=== PATIENT | female | born 1960 | race Hispanic/Latino ===

== ENCOUNTER → 2018-11-03 | Outpatient (CLI) | payer MEDICARE ==
[~2018-11-03] MED LIST: ANAS1TAB7 PO; ASPI-555 PO; CELE-84 PO; ESOM40CA PO; HYDR200T4 PO; INSLAN SQ; INSU100V3 IJ; LEVO150T11 PO; METO25TA3 PO; MONT10TA24 PO; SERT100T PO; SIMV40TA59 PO; TRAM50TA4 PO
== END | disposition home or self-care (01) ==
LOC: SHCH 15:04
PROVIDERS: ATTEND Internal Medicine Cardiovascular Disease
DX: R06.00 Dyspnea, unspecified (principal)
CPT/HCPCS: 93306

== ENCOUNTER → 2018-11-04 | Outpatient (CLI) | payer MEDICARE ==
[~2018-11-04] MED LIST changes: +ALBUTEROL SULFATE 0.083% 2.5 MG/3 ML INH IH ONE
== END | disposition home or self-care (01) ==
LOC: RESP 12:46
PROVIDERS: ATTEND Internal Medicine Cardiovascular Disease
DX: J40 Bronchitis, not specified as acute or chronic (principal)
CPT/HCPCS: 94060; 94727; 94729

== ENCOUNTER → 2019-01-14 | Outpatient (CLI) | payer MEDICARE ==
[~2019-01-14] MED LIST changes: -ALBUTEROL SULFATE 0.083% 2.5 MG/3 ML INH IH ONE
== END | disposition home or self-care (01) ==
LOC: RAH 13:13
PROVIDERS: ATTEND Internal Medicine
DX: J84.10 Pulmonary fibrosis, unspecified (principal); G47.33 Obstructive sleep apnea (adult) (pediatric); I51.7 Cardiomegaly
CPT/HCPCS: 71250

== ENCOUNTER → 2019-01-21 | Outpatient (CLI) | payer MEDICARE ==
--- NOTE | 2019-01-21 22:35 | NUR ---
LIST OF CURRENT MEDICATIONS (BOTH PRESCRIPTION AND OVER THE COUNTER: LANSOPRAZOLE 30MG BID, [id number] MG, ATORVASTATIN 40 MG, HYDROXYCHLORIDE 200MG, SERTRALINE 50 MG, SINGULAR 10 MG ONCE EVENING, BREO ELLIPTA 100 MCG INHALATION, TEMAZEPAM 30 MG HS. Addendum: 01/21/19 at 2239 by JOHNNY SHERMAN Amended: Links added.
== END | disposition home or self-care (01) ==
LOC: SLP 10:11
PROVIDERS: ATTEND Internal Medicine
DX: G47.33 Obstructive sleep apnea (adult) (pediatric) (principal)
CPT/HCPCS: 95810

== ENCOUNTER 2019-02-26 20:29 | Emergency (ER) | payer MEDICARE ==
[2019-02-26] MEDS ORDERED: DEXAMETHASONE SOD PHOSPHATE 10MG/ML 1ML VIAL ONE (21:28)
[2019-02-26] MEDS ORDERED: HYDROCODONE/ACETAMINOPHEN 10/325 MG TAB ONE (21:28)
[2019-02-26] MEDS ORDERED: KETOROLAC TROMETHAMINE 30MG/ML ONE (21:28)
[2019-02-26 22:34] LABS: BASOPHILS % (AUTO) 0.7 % (0.0-5.0); EOSINOPHILS % (AUTO) 1.9 % (0.0-8.0); HEMATOCRIT 38.2 % (36-48); LYMPHOCYTES % (AUTO) 22.1 % (21.0-51.0); MEAN CORPUSCULAR HEMOGLOBIN 27.9 pg (27.0-33.0); MEAN CORPUSCULAR HGB CONC 33.4 g/dL (32.0-36.0); MEAN CORPUSCULAR VOLUME 83.3 fL (79-99); MONOCYTES % (AUTO) 5.9 % (3.0-13.0); NEUTROPHILS % (AUTO) 69.4 % (40.0-77.0); PLATELET COUNT (AUTO) 211 K/uL (130-400); RED BLOOD CELL COUNT(AUTO) 4.58 MIL/uL (4.00-5.50); WHITE BLOOD COUNT (AUTO) 10.5 K/uL (4.8-10.8)
[2019-02-26 22:40] LABS: CREATININE 0.7 mg/dL (0.5-1.5); POTASSIUM 3.7 mmol/L (3.5-5.1)
[2019-02-26 22:45] LABS: ALBUMIN 3.3 g/dL (3.5-5.0); BILIRUBIN,TOTAL 0.2 mg/dL (0.2-1.0); CRP QUANTITATIVE 18.3 mg/L (0.00-9.0); TOTAL PROTEIN, SERUM 6.5 g/dL (6.0-8.3)
[2019-02-26 23:34] LABS: ERYTHROCYTE SEDIMENTATION RATE 17 MM/HR (0-30)
[2019-02-27] MEDS ORDERED: LORAZEPAM 2 MG/ML 1 ML VIAL ONE (00:03)
== END 2019-02-27 00:38 | disposition home or self-care (01) ==
LOC: EDH 20:29
DX: L93.0 Discoid lupus erythematosus (principal); M25.562 Pain in left knee; E11.9 Type 2 diabetes mellitus without complications; E78.5 Hyperlipidemia, unspecified; Z90.710 Acquired absence of both cervix and uterus; Z85.3 Personal history of malignant neoplasm of breast; X58.XXXA Exposure to other specified factors, initial encounter; Y93.89 Activity, other specified; Y92.098 Other place in other non-institutional residence as the place of occurrence of the external cause; Y99.8 Other external cause status
CPT/HCPCS: 36415; 73562; 80053; 85025; 85651; 86140; 96372 ×2; 96374; 99284; J1100; J1885; J2060

== ENCOUNTER 2019-05-14 14:45 | Inpatient (IN) | payer MEDICARE ==
[~2019-05-14] VITALS: Ht 157.5 cm; Wt 101.2 kg
[2019-05-14 16:03] VITALS: BP 150/71
[2019-05-14 16:21] LABS: BASOPHILS % (AUTO) 0.5 % (0.0-5.0); HEMATOCRIT 38.7 % (36-48); LYMPHOCYTES % (AUTO) 26.1 % (21.0-51.0); MEAN CORPUSCULAR HEMOGLOBIN 27.7 pg (27.0-33.0); MEAN CORPUSCULAR HGB CONC 32.8 g/dL (32.0-36.0); MEAN CORPUSCULAR VOLUME 84.4 fL (79-99); MONOCYTES % (AUTO) 5.5 % (3.0-13.0); NEUTROPHILS % (AUTO) 65.9 % (40.0-77.0); NUCLEATED RED BLOOD CELLS 0.1 % (0.0-0.19); PLATELET COUNT (AUTO) 221 K/uL (130-400); RED BLOOD CELL COUNT(AUTO) 4.59 MIL/uL (4.00-5.50); RED CELL DISTRIBUTION WIDTH 14.8 % (11.0-15.5); WHITE BLOOD COUNT (AUTO) 7.5 K/uL (4.8-10.8)
[2019-05-14 16:23] LABS: BILIRUBIN,URINE Negative (NEGATIVE); COLOR,URINE Yellow (YELLOW); GLUCOSE, URINE (UA) Negative (NEGATIVE); KETONES,URINE Negative (NEGATIVE); LEUKOCYTE ESTERASE ,URINE Small (NEGATIVE); NITRATE,URINE Positive (NEGATIVE); OCCULT BLOOD,URINE Negative (NEGATIVE); PH,URINE 5.5 (5.0-8.0); PROTEIN,URINE Negative (NEGATIVE)
[2019-05-14 16:26] LABS: APPEARANCE,URINE SLIGHTLY CLOUDY (CLEAR)
[2019-05-14 16:30] LABS: CREATININE 0.8 mg/dL (0.5-1.5); POTASSIUM 3.8 mmol/L (3.5-5.1)
[2019-05-14 16:35] LABS: PARTIAL THROMBOPLASTIN TIME 27.8 SEC (26.3-35.5)
[2019-05-14 16:48] LABS: PROTHROMBIN TIME 10.5 SEC (9.6-11.6)
[2019-05-14 16:54] LABS: BACTERIA,URINE Moderate /HPF (None Seen); RBC,URINE 0-1 /HPF (0-1)
[2019-05-14 16:55] LABS: MUCUS,URINE Few LPF (None Seen); SQUAMOUS EPITHELIAL CELL,UR Rare /HPF (0-2)
[2019-05-14] MEDS ORDERED: LANS30TA10 PO (17:15)
[2019-05-14] MEDS ORDERED: FLUT1AER IH (17:15)
[2019-05-14] MEDS ORDERED: SERT50TA12 PO (17:15)
[2019-05-14] MEDS ORDERED: FLUT16H NASAL (17:15)
[2019-05-14] MEDS ORDERED: TEMA30CA PO (17:15)
[2019-05-14] MEDS ORDERED: VITAMIN D (17:15)
[2019-05-14] MEDS ORDERED: LEVO150T11 PO (17:15)
[2019-05-14] MEDS ORDERED: ATOR40TA69 PO (17:15)
[2019-05-17] VITALS (28 sets, daily range): BP systolic 107–178; BP diastolic 47–86
[2019-05-17] MEDS ORDERED: CEFAZOLIN 3GM /D5W 100ML 100 ML IV SCH (06:00)
[2019-05-17] MEDS ORDERED: GENTAMICIN SULFATE 240 MG in SODIUM CHLORIDE 0.9% 100 ML IV SCH (06:00)
[2019-05-17] MEDS ORDERED: SUCCINYLCHOLINE 200MG/10ML SYR ONE (07:14)
[2019-05-17] MEDS ORDERED: LIDOCAINE PF 2% 5ML ABBOJECT ONE ×2 (07:14→07:15)
[2019-05-17] MEDS ORDERED: PROPOFOL 10 MG/ML 20ML VIAL IV ONE (07:15)
[2019-05-17] MEDS ORDERED: MIDAZOLAM HCL 1 MG/ML 2ML VIAL ONE (07:15)
[2019-05-17] MEDS ORDERED: FENTANYL CITRATE PF 50 MCG/1 ML 2ML VIAL ONE ×2 (07:15→10:37)
[2019-05-17] MEDS ORDERED: ROCURONIUM 10MG/1ML SYR 10 MG/ML ML ONE (07:15)
[2019-05-17] MEDS ORDERED: ROPIVACAINE 0.5% 5MG/ML 30ML IJ ONE ×2 (07:22→12:39)
[2019-05-17] MEDS ORDERED: CEFAZOLIN SODIUM 1 GM VIAL ONE (07:36)
[2019-05-17] MEDS ORDERED: TRANEXAMIC ACID 1000MG/10ML IV ONE ×2 (07:36→12:53)
[2019-05-17] MEDS ORDERED: SODIUM CHLORIDE 0.9% 1000ML 1,000 ML IV ONE (07:46)
[2019-05-17] MEDS: CEFAZOLIN SODIUM 1 GM VIAL ONE ×2 (08:01→08:38)
[2019-05-17] MEDS ORDERED: CEFAZOLIN SODIUM 1 GM VIAL IRRIG ONE (09:01)
[2019-05-17] MEDS ORDERED: HYDRALAZINE HCL 20 MG/ML VIAL ONE (09:11)
[2019-05-17] MEDS ORDERED: GLYCOPYRROLATE 1 MG/5 ML SYRINGE ONE (10:11)
[2019-05-17] MEDS ORDERED: NEOSTIGMINE 5MG/5ML SYR IV ONE (10:12)
[2019-05-17] MEDS ORDERED: OXYCODONE HCL 5 MG TAB PO PRN (10:30)
[2019-05-17] MEDS ORDERED: CALCIUM CARBONATE 500 MG TABLET PO PRN (10:30)
[2019-05-17] MEDS ORDERED: DiphenhydrAMINE HCL 50 MG/ML VIAL IVP PRN (10:30)
[2019-05-17] MEDS ORDERED: TRAMADOL HCL 50 MG TABLET PO PRN (10:30)
[2019-05-17] MEDS ORDERED: POTASSIUM CHLORIDE 10% ELIXIR 20 MEQ/15 ML UDCUP PO PRN (10:30)
[2019-05-17] MEDS ORDERED: ONDANSETRON HCL 4 MG/2 ML VIAL IVP PRN (10:30)
[2019-05-17] MEDS: ACETAMINOPHEN EXTRA STRENGTH 500 MG TABLET PO SCH ×2 (10:30→18:06)
[2019-05-17] MEDS ORDERED: POTASSIUM CHLORIDE 20MEQ/100ML 100 ML IV PRN (10:30)
[2019-05-17] MEDS ORDERED: FERROUS FUMARATE 324 MG TABLET PO PRN (10:30)
[2019-05-17] MEDS ORDERED: LIDOCAINE HCL-MPF 1% 2ML VIAL IVP PRN (10:30)
[2019-05-17] MEDS ORDERED: DEXAMETHASONE SOD PHOSPHATE 4 MG/ML 1ML VIAL ONE (10:34)
[2019-05-17] MEDS ORDERED: ONDANSETRON HCL 4 MG/2 ML VIAL ONE (10:34)
[2019-05-17] MEDS ORDERED: METOCLOPRAMIDE 10 MG/2 ML VIAL ONE (10:57)
[2019-05-17] MEDS ORDERED: MEPERIDINE-PF 25 MG/ML SYG ONE ×2 (11:06→11:15)
[2019-05-17] MEDS ORDERED: LABETALOL HCL 5 MG/ML 20ML VIAL IV ONE (11:15)
[2019-05-17] MEDS ORDERED: KETOROLAC TROMETHAMINE 30MG/ML ONE (11:56)
[2019-05-17] MEDS ORDERED: MEPERIDINE-PF 50 MG/ML SYG ONE (12:07)
[2019-05-17] MEDS: SODIUM CHLORIDE 0.9% 1000ML 1,000 ML IV SCH ×2 (13:10→20:13)
[2019-05-17] MEDS: CEFAZOLIN SODIUM 1 GM VIAL IVP SCH (16:18)
[2019-05-17] MEDS: OXYCODONE HCL 5 MG TAB PO PRN (16:18)
[2019-05-17] MEDS: ALBUTEROL SULFATE 0.083% 2.5 MG/3 ML INH IH SCH ×2 (19:01→23:10)
[2019-05-17] MEDS: BUDESONIDE 0.5 MG/2 ML INH IH SCH (19:12)
[2019-05-17] MEDS: ASPIRIN 325 MG TABLET PO SCH (20:12)
[2019-05-17] MEDS: PANTOPRAZOLE SODIUM 40 MG TABLET.DR PO SCH (20:12)
[2019-05-17] MEDS: PREGABALIN 25 MG CAP PO SCH (20:13)
[2019-05-17] MEDS: SERTRALINE HCL 50 MG TABLET PO SCH (20:13)
[2019-05-17] MEDS: TEMAZEPAM 30 MG CAP PO SCH (20:13)
[2019-05-17] MEDS: FAMOTIDINE 20MG TAB 20 MG TAB PO SCH (20:15)
[2019-05-17] MEDS: KETOROLAC TROMETHAMINE 15MG/ML IV PRN (20:16)
[2019-05-18] MEDS: CEFAZOLIN SODIUM 1 GM VIAL IVP SCH (00:15)
[2019-05-18] MEDS: ACETAMINOPHEN EXTRA STRENGTH 500 MG TABLET PO SCH ×3 (02:48→18:25)
[2019-05-18 03:00] VITALS: BP 116/70
[2019-05-18] MEDS: OXYCODONE HCL 5 MG TAB PO PRN ×4 (04:30→21:06)
[2019-05-18 04:36] LABS: HEMATOCRIT 30.9 % (36-48); MEAN CORPUSCULAR HEMOGLOBIN 28.2 pg (27.0-33.0); MEAN CORPUSCULAR HGB CONC 33.6 g/dL (32.0-36.0); MEAN CORPUSCULAR VOLUME 83.9 fL (79-99); PLATELET COUNT (AUTO) 199 K/uL (130-400); RED BLOOD CELL COUNT(AUTO) 3.68 MIL/uL (4.00-5.50); RED CELL DISTRIBUTION WIDTH 14.5 % (11.0-15.5); WHITE BLOOD COUNT (AUTO) 9.8 K/uL (4.8-10.8)
[2019-05-18 04:53] LABS: CREATININE 0.6 mg/dL (0.5-1.5); POTASSIUM 3.4 mmol/L (3.5-5.1)
[2019-05-18] MEDS: BUDESONIDE 0.5 MG/2 ML INH IH SCH ×2 (05:20→19:17)
[2019-05-18] MEDS: ALBUTEROL SULFATE 0.083% 2.5 MG/3 ML INH IH SCH ×3 (05:20→19:17)
[2019-05-18] MEDS: LEVOTHYROXINE 150 MCG TABLET PO SCH (06:16)
[2019-05-18] MEDS: SODIUM CHLORIDE 0.9% 1000ML 1,000 ML IV SCH (06:16)
[2019-05-18] MEDS: POTASSIUM CHLORIDE 20 MEQ ERTAB PO PRN ×2 (06:16→18:24)
[2019-05-18] MEDS: KETOROLAC TROMETHAMINE 15MG/ML IV PRN ×2 (06:20→16:06)
[2019-05-18 07:00] VITALS: BP 120/53
[2019-05-18] MEDS: ATORVASTATIN CALCIUM 40 MG TABLET PO SCH (08:29)
[2019-05-18] MEDS: PREGABALIN 25 MG CAP PO SCH ×2 (08:30→21:05)
[2019-05-18] MEDS: PANTOPRAZOLE SODIUM 40 MG TABLET.DR PO SCH ×2 (08:30→21:05)
[2019-05-18] MEDS: ASPIRIN 325 MG TABLET PO SCH ×2 (08:30→21:05)
[2019-05-18] MEDS: POLYETHYLENE GLYCOL 3350 17 GM POWD.PACK PO SCH (08:31)
[2019-05-18] MEDS: FLUTICASONE PROPIONATE 50MCG/SPRAY 16 GM BOTTLE EN SCH (08:31)
[2019-05-18] MEDS: FAMOTIDINE 20MG TAB 20 MG TAB PO SCH ×2 (08:32→21:05)
[2019-05-18 12:56] VITALS: BP 117/59
[2019-05-18 16:18] VITALS: BP 132/63
[2019-05-18 19:00] VITALS: BP 125/61
[2019-05-18] MEDS ORDERED: IPRATROPIUM/ALBUTEROL SULFATE 3 ML SOLUTION IH ONE (19:30)
[2019-05-18] MEDS: TEMAZEPAM 30 MG CAP PO SCH (21:05)
[2019-05-18] MEDS: SERTRALINE HCL 50 MG TABLET PO SCH (21:05)
[2019-05-18 23:00] VITALS: BP 120/61
[2019-05-19] MEDS: ALBUTEROL SULFATE 0.083% 2.5 MG/3 ML INH IH SCH ×3 (00:08→11:05)
[2019-05-19 03:00] VITALS: BP 140/71
[2019-05-19] MEDS: OXYCODONE HCL 5 MG TAB PO PRN ×2 (03:53→15:44)
[2019-05-19] MEDS: ACETAMINOPHEN EXTRA STRENGTH 500 MG TABLET PO SCH ×2 (03:54→11:45)
[2019-05-19] MEDS: BUDESONIDE 0.5 MG/2 ML INH IH SCH (06:08)
[2019-05-19] MEDS: LEVOTHYROXINE 150 MCG TABLET PO SCH (06:08)
[2019-05-19] MEDS: KETOROLAC TROMETHAMINE 15MG/ML IV PRN ×2 (08:01→18:10)
[2019-05-19] MEDS: PANTOPRAZOLE SODIUM 40 MG TABLET.DR PO SCH (08:01)
[2019-05-19] MEDS: ASPIRIN 325 MG TABLET PO SCH (08:01)
[2019-05-19] MEDS: POLYETHYLENE GLYCOL 3350 17 GM POWD.PACK PO SCH (08:01)
[2019-05-19] MEDS: PREGABALIN 25 MG CAP PO SCH (08:02)
[2019-05-19] MEDS: ATORVASTATIN CALCIUM 40 MG TABLET PO SCH (08:02)
[2019-05-19] MEDS: FLUTICASONE PROPIONATE 50MCG/SPRAY 16 GM BOTTLE EN SCH (08:02)
[2019-05-19] MEDS: FAMOTIDINE 20MG TAB 20 MG TAB PO SCH (08:02)
[2019-05-19 08:23] VITALS: BP 134/68
[2019-05-19] MEDS ORDERED: NITROFURANTOIN MONOHYD/M-CRYST 100 MG CAPSULE PO SCH (09:00)
[2019-05-19] MEDS ORDERED: BISACODYL 10 MG SUPP.RECT RC ONE (15:45)
[2019-05-19 16:35] VITALS: BP 135/54
[2019-05-19] MEDS ORDERED: HYDR-4457 PO (17:08)
[2019-05-19] MEDS ORDERED: ASPI-1012 PO (17:08)
[2019-05-19] MEDS ORDERED: NITR100C4 PO (17:08)
[2019-05-20] MEDS ORDERED: BISACODYL 10 MG SUPP.RECT RC PRN (10:30)
== END 2019-05-19 19:15 | disposition home health service (06) | DRG 470 ==
LOC: DAHIP 05-17 06:56 → 4AH 05-17 11:48
PROVIDERS: ADMIT Orthopaedic Surgery; ATTEND Orthopaedic Surgery
PROC: 0SUW09Z Supplement Left Knee Joint, Tibial Surface with Liner, Open Approach (ICD-10-PCS; 2019-05-17)
PROC: 0SRD0J9 Replacement of Left Knee Joint with Synthetic Substitute, Cemented, Open Approach (ICD-10-PCS; principal; 2019-05-17 08:21)
DX: M17.12 Unilateral primary osteoarthritis, left knee (principal); N39.0 Urinary tract infection, site not specified; E03.9 Hypothyroidism, unspecified; E11.9 Type 2 diabetes mellitus without complications; E78.00 Pure hypercholesterolemia, unspecified; I10 Essential (primary) hypertension; J44.9 Chronic obstructive pulmonary disease, unspecified; K21.9 Gastro-esophageal reflux disease without esophagitis; G89.29 Other chronic pain; Z96.651 Presence of right artificial knee joint; Z90.710 Acquired absence of both cervix and uterus; Z88.1 Allergy status to other antibiotic agents; Z85.3 Personal history of malignant neoplasm of breast
CPT/HCPCS: 36415; 80048; 81001; 82948; 85025; 85027; 85610; 85730; 87077; 87088; 87186; 87641; 88305; 88311; 94640; 94664; G0378; J0330; J0360; J0690; J1100; J1580; J1885; J2001; J2175; J2250; J2405; J2704; J2710; J2765; J2795; J3010; J3490; J7030

== ENCOUNTER → 2020-01-05 | Outpatient (CLI) | payer MEDICARE ==
[~2020-01-05] MED LIST changes: +ALBUTEROL SULFATE 0.083% 2.5 MG/3 ML INH IH ONE; -ANAS1TAB7 PO; +ASPI-1012 PO; -ASPI-555 PO; +ATOR40TA69 PO; -CELE-84 PO; -ESOM40CA PO; +FLUT16H NASAL; +FLUT1AER IH; +HYDR-4457 PO; -HYDR200T4 PO; -INSLAN SQ; -INSU100V3 IJ; +LANS30TA10 PO; -METO25TA3 PO; -MONT10TA24 PO; +NITR100C4 PO; -SERT100T PO; +SERT50TA12 PO; -SIMV40TA59 PO; +TEMA30CA PO; -TRAM50TA4 PO; +VITAMIN D
== END | disposition home or self-care (01) ==
LOC: RESP 12:55
PROVIDERS: ATTEND Internal Medicine
DX: L93.0 Discoid lupus erythematosus (principal); J44.9 Chronic obstructive pulmonary disease, unspecified
CPT/HCPCS: 94060; 94727; 94729

== ENCOUNTER → 2022-05-10 | Outpatient (CLI) | payer OTHER, MEDICARE ==
[~2022-05-10] MED LIST changes: -ALBUTEROL SULFATE 0.083% 2.5 MG/3 ML INH IH ONE; +SERT-439 PO; -SERT50TA12 PO
== END | disposition home or self-care (01) ==
LOC: RAH 04-26 15:06
PROVIDERS: ATTEND Internal Medicine
DX: J44.9 Chronic obstructive pulmonary disease, unspecified (principal); R06.00 Dyspnea, unspecified
CPT/HCPCS: 71250

== ENCOUNTER 2025-06-10 18:49 | Observation (INO) | payer MEDICARE ==
[~2025-06-10] VITALS: Ht 157.5 cm; Wt 102.4 kg
[2025-06-10 19:35] LABS: IMMATURE GRANULOCYTE ABSOLUTE 0.02 K/uL (0-1); NUCLEATED RED BLOOD CELLS 0.0 % (0.0-0.19); PLATELET COUNT (AUTO) 189 K/uL (130-400); RED BLOOD CELL COUNT(AUTO) 5.03 MIL/uL (4.00-5.50); RED CELL DISTRIBUTION WIDTH 14.6 % (11.0-15.5); WHITE BLOOD COUNT (AUTO) 4.4 K/uL (4.8-10.8)
[2025-06-10 19:41] LABS: APPEARANCE,URINE CLEAR (CLEAR); GLUCOSE, URINE (UA) NEGATIVE (NEGATIVE); LEUKOCYTE ESTERASE ,URINE 25 Leu/uL (NEGATIVE); NITRATE,URINE NEGATIVE (NEGATIVE); OCCULT BLOOD,URINE NEGATIVE (NEGATIVE)
[2025-06-10 19:47] LABS: CREATININE 0.7 mg/dL (0.5-1.0); GLOMERULAR FILTR. RATE CALC 95.0 mL/min (>90); GLUCOSE,RANDOM 111.0 mg/dL (70-105); SODIUM SERUM 146.0 mmol/L (136-145); UREA NITROGEN, BLOOD 10.0 mg/dL (7-18)
[2025-06-10] MEDS: FAMOTIDINE 20MG VIAL IV SCH (19:49)
[2025-06-10 19:51] LABS: ASPARTATE AMINOTRANSFERASE 33.0 U/L (10-37); TOTAL PROTEIN, SERUM 6.9 g/dL (6.0-8.3)
[2025-06-10 20:05] LABS: ADD UA MICROSCOPIC YES
[2025-06-10 20:13] LABS: SQUAMOUS EPITHELIAL CELL,UR RARE /HPF (0-2)
[2025-06-10 20:17] LABS: RAPID GROUP A STREP negative (NEGATIVE)
[2025-06-10 20:28] LABS: INFLUENZA TYPE A Negative For Type A (NEGATIVE); INFLUENZA TYPE B Negative For Type B (NEGATIVE)
[2025-06-10 20:53] VITALS: TEMP 100.7
[2025-06-10] MEDS: 0.9%NACL 1000ML 1,000 ML IV ONE (20:55)
[2025-06-10 21:17] LABS: SARS-CoV-2, RNA, NAAT POSITIVE SARS CoV-2 (NEGATIVE)
[2025-06-11] VITALS (11 sets, daily range): BP systolic 122–141; BP diastolic 64–75; PULSE 63–74; RESP 16–20; TEMP 97.6–98; O2SAT 97–98
[2025-06-11] MEDS ORDERED: ATOR40TA71 PO (00:12)
[2025-06-11] MEDS ORDERED: DEXL60CA3 PO (00:12)
[2025-06-11] MEDS ORDERED: MONT-39 PO (00:12)
[2025-06-11] MEDS ORDERED: INSU3INS3 SQ (00:12)
[2025-06-11] MEDS ORDERED: CHOL500051 PO (00:12)
[2025-06-11] MEDS ORDERED: TEMA30CA PO (00:12)
[2025-06-11] MEDS ORDERED: MELO-108 PO (00:12)
[2025-06-11] MEDS ORDERED: METH8TAB6 PO (00:12)
[2025-06-11] MEDS ORDERED: VITA1CAP85 PO (00:12)
[2025-06-11] MEDS ORDERED: MIRT-142 PO (00:12)
[2025-06-11] MEDS ORDERED: LOSA25TA41 PO (00:12)
--- NOTE | 2025-06-11 00:28 | ERN ---
General Chief Complaint: Weakness Stated Complaint: WEAKNESS,MULTIPLE Time Seen by MD: 18:55 Time Seen by Midlevel: 18:55 Source: patient History of Present Illness Initial Comments Patient is a 64-year-old female presenting to the emergency department for evaluation of generalized body weakness that has been ongoing for the last week and progressively worsening. Associated symptoms include nausea, vomiting, and abdominal pain. Her main concern today is the new onset of dyspnea on exertion that has been ongoing for the last couple of days. Today she reports developing a fever. Denies any other symptoms Allergies: Coded Allergies: Sulfa (Sulfonamide Antibiotics) (Verified Allergy, Unknown, 05/28/16) Home Meds Active Scripts Hydrocodone/Acetaminophen ([place] 5-325 Tablet) 1 Each Tablet, 1-2 EACH PO Q6HPRN PRN for PAIN, #60 TAB Prov:MATEUS DEL RIO MD 05/19/19 Nitrofurantoin Monohyd/M-Cryst (Macrobid 100 mg Capsule) 100 Mg Capsule, 100 MG PO BID, #20 CAP Prov:MATEUS DEL RIO MD 05/19/19 Aspirin (ASPIRIN) 325 Mg Tablet, 325 MG PO BID, #40 TAB Prov:MATEUS DEL RIO MD 05/19/19 Reported Medications Meloxicam (Meloxicam) 15 Mg Tablet, 1 TAB PO DAILY for 30 Days, #30 TAB 0 Refills 06/11/25 Mirtazapine (Mirtazapine Odt) 15 Mg Tab.rapdis, 15 MG PO DAILY, TAB 06/11/25 Cholecalciferol (Vitamin D3) (Vitamin D3) 125 Mcg (5000 Unit) Capsule, 1 CAP PO DAILY for 30 Days, #30 CAP 0 Refills 06/11/25 Temazepam (Temazepam) 30 Mg Capsule, 1 CAP PO HSPRN PRN for sleep for 30 Days, #30 CAP 0 Refills 06/11/25 Vitamin B Complex (Vitamin B Complex) 1 Each Capsule, 1 CAP PO DAILY for 30 Days, #60 CAP 0 Refills 06/11/25 Insulin Glargine,Hum.rec.anlog (Lantus Solostar) 100 Unit/Ml (3 Ml) Insuln.pen, 20 UNIT SQ HS for 30 Days, ML 0 Refills 06/11/25 Methylprednisolone (Methylprednisolone) 8 Mg Tablet, 1 TAB PO AD for 5 Days, #5 TAB 0 Refills 06/11/25 Dexlansoprazole (Dexilant) 60 Mg Cap., 1 CAP PO DAILY for 30 Days, #30 CAP 0 Refills 06/11/25 Montelukast Sodium (Montelukast Sodium) 10 Mg Tablet, 1 TAB PO DAILY for 30 Days, #30 TAB 0 Refills 06/11/25 Atorvastatin Calcium (Atorvastatin Calcium) 40 Mg Tablet, 1 TAB PO QMOWEFR for 30 Days, #30 TAB 0 Refills 06/11/25 Losartan Potassium (Losartan Potassium) 25 Mg Tablet, 1 TAB PO DAILY for 30 Days, #30 TAB 0 Refills 06/11/25 Fluticasone Propionate (Flonase Nasal [place]) 50 Mcg/[place], 50 MCG NASAL DAILY, SPRAY 05/14/19 Fluticasone/Vilanterol (Breo Ellipta 100-25 Mcg INH) 1 Each Aer.pow.ba, 1 EACH IH DAILY 05/14/19 Sertraline HCl (Sertraline HCl) 50 Mg Tablet, 50 MG PO HS, TAB 05/14/19 Atorvastatin Calcium (LIPITOR) 40 Mg Tablet, 40 MG PO DAILY, TAB 05/14/19 Temazepam (Temazepam) 30 Mg Capsule, 30 MG PO HS, CAP 05/14/19 Levothyroxine Sodium (Levothyroxine Sodium) 150 Mcg Tablet, 150 MCG PO DAILY, TAB 05/14/19 [Vitamin D] No Conflict Check, [id number] 05/14/19 Lansoprazole (Lansoprazole) 30 Mg Tab., 30 MG PO BID 05/14/19 Past Medical History Past Medical History: Diabetes-Type II, Hypertension, Hypothyroid Medical History Other: LUPUS, CHEMOTHERAPY Past Surgical History: Other Surgical History Other: BARIATRIC SURGERY ROS Dictation CONSTITUTIONAL: Negative except for HPI HEAD/FACE: Negative except for HPI EENT: Negative except for HPI RESPIRATORY: Negative except for HPI GASTROINTESTINAL/ABDOMINAL: Negative except for HPI GENITOURINARY: Negative except for HPI MUSCULOSKELETAL: Negative except for HPI INTEGUMENTARY: Negative except for HPI NEUROLOGICAL/PSYCH: Negative except for HPI HEMATOLOGIC/LYMPHATIC: Negative except for HPI All Systems Negative, Except as noted above. 13 point review of systems assessed and all negative except for above. Physical Exam Physical Exam Dictation Vital Signs reviewed General Appearance: Alert, oriented x 3, no acute distress, well developed, nourished. Head and Face: non-traumatic. Eyes: PERRL, pink conjunctivas, eyelid no trauma, anterior chamber with arcus senilis. Ears: Pinnas intact and no signs of trauma or erythema ear canals clear and no discharge TM no erythema Nose: No discharge, no bleeding. Oropharynx: Mouth normal, tongue pink, pharynx clear,no erythema, tonsils no exudates, no abscesses noted, mucous membrane moist Neck: Supple, non-tender, no thyromegaly, no masses, no JVD, no bruits Breast:Deferred Chest:No tenderness, no crepitus, no paradoxical movement, no retractions Lungs:Clear, well-ventilated, symmetric, no rales, no wheezing, no rhonchi, no stridor, good breath sounds bilaterally Heart: Regular rate, regular rhythm, no murmur, no gallops Vascular: no peripheral edema, Abdomen: Soft, positive bowel sounds, nondistended, no guarding, nontender, no rebound, no masses no hepatomegaly, no splenomegaly, no Pavon's sign, no hernias. Rectal: Deferred Genital: Deferred Neurological: Normal speech, motor function intact, sensory function intact Musculoskeletal: Neck nontender, full range of motion, back nontender, full range of motion, Extremities: nontender, full range of motion Skin: Color pink, dry, no turgor, no rash, no lacerations, no abrasions, no contusions. Lymphatic: Deferred Results Laboratory and Microbiology Lab and Micro Result Laboratory Tests Test 06/10/25 19:20 06/10/25 19:23 06/10/25 19:51 06/10/25 20:40 Urine Color LIGHT-YELLOW (YELLOW) Urine Appearance CLEAR (CLEAR) Urine pH 6.5 (5.0-8.0) Urine Specific [place] 1.009 (1.001-1.031) Urine Protein NEGATIVE mg/dL (NEGATIVE) Urine Glucose (UA) NEGATIVE mg/dL (NEGATIVE) Urine Ketones NEGATIVE mg/dL (NEGATIVE) Urine Occult Blood NEGATIVE (NEGATIVE) Urine Nitrate NEGATIVE (NEGATIVE) Urine Bilirubin NEGATIVE mg/dL (NEGATIVE) Urine Urobilinogen 0.2 mg/dL (0.2-1.0) Urine Leukocyte Esterase 25 Tucker/uL (NEGATIVE) H Urine RBC 0-1 /HPF (0-1) Urine WBC 6-10 /HPF (0-1) H Urine Squamous Epithelial Cells RARE /HPF (0-2) Urine Bacteria RARE /HPF (None Seen) White Blood Count 4.4 K/uL (4.8-10.8) L Red Blood Count 5.03 MIL/uL (4.00-5.50) Hemoglobin 14.1 g/dL (12.0-16.0) Hematocrit 42.7 % (36-48) Mean Corpuscular Volume 84.9 fL (79-99) Mean Corpuscular Hemoglobin 28.0 pg (27.0-33.0) Mean Corpuscular Hemoglobin Concent 33.0 g/dL (32.0-36.0) Red Cell Distribution Width 14.6 % (11.0-15.5) Platelet Count 189 K/uL (130-400) Mean Platelet Volume 11.0 fL (7.5-10.5) H Immature Granulocyte % (Auto) 0.5 % (0-1) Neutrophils (%) (Auto) 64.8 % (40.0-77.0) Lymphocytes (%) (Auto) 27.6 % (21.0-51.0) Monocytes (%) (Auto) 6.0 % (3.0-13.0) Eosinophils (%) (Auto) 0.9 % (0.0-8.0) Basophils (%) (Auto) 0.2 % (0.0-5.0) Neutrophils # (Auto) 2.8 K/uL (1.8-7.7) Lymphocytes # (Auto) 1.2 K/uL (1.0-4.8) Monocytes # (Auto) 0.3 K/uL (0.1-1.0) Eosinophils # (Auto) 0.04 K/uL (0.00-0.70) Basophils # (Auto) 0.01 K/uL (0.00-0.20) Absolute Immature Granulocyte (auto 0.02 K/uL (0-1) Nucleated Red Blood Cells 0.0 % (0.0-0.19) Sodium Level 146 mmol/L (136-145) H Potassium Level 3.6 mmol/L (3.5-5.1) Chloride Level 109 mmol/L (101-111) Carbon Dioxide Level 25 mmol/L (21-32) Blood Urea Nitrogen 10 mg/dL (7-18) Creatinine 0.7 mg/dL (0.5-1.0) Glomerular Filtration Rate Calc 95 mL/min (>90) Random Glucose 111 mg/dL (70-105) H Total Calcium 8.9 mg/dL (8.5-10.1) Total Bilirubin 0.5 mg/dL (0.2-1.0) Direct Bilirubin 0.1 mg/dL (0.0-0.3) Aspartate Amino Transf (AST/SGOT) 33 U/L (10-37) Alanine Aminotransferase (ALT/SGPT) 32 U/L (12-78) Alkaline Phosphatase 149 U/L (50-136) H Troponin I High Sensitivity 10 ng/L (4-50) B-Type Natriuretic Peptide 25 pg/mL (0-100) Total Protein 6.9 g/dL (6.0-8.3) Albumin 3.6 g/dL (3.5-5.0) Lipase 45 U/L (16-77) Influenza Type A Antigen Negative For Type A Influenza Type B Antigen Negative For Type B SARS-CoV-2, RNA, NAAT POSITIVE SARS CoV-2 Group A Streptococcus Rapid negative (NEGATIVE) Lactic Acid Level 1.9 mmol/L (0.8-2.5) MDM MDM: Differential diagnosis: Pneumonia, pulmonary edema, pleural effusion Rationale: Tests considered and ordered secondary to shared decision making include: Previous outside records reviewed: Old ER visits. Risk of complication and/or morbidity or mortality of patient management: None Medications-Per medication reconciliation Need for hospitalization: Patient does meet criteria for hospitalization. Need for emergency major/minor surgery: No There are no social concerns with this patient. Prescription drug management Prescriptions will include symptomatic care Patient's prior external medical records from other ER visits were reviewed by me as indicated. Prior testing and results from previous visits were reviewed. Prior tests were taken into account with medical decision making and resource utilization, independent historian/historians were used to obtain complete medical history. I independently interpreted the test that were performed, results were reviewed by me and considered findings on radiology if ordered. Medical management and examination interpretation discussions were had by me with other qualified healthcare professionals as indicated for the patient's care. ED Course Orders Procedure Category Date Status Time 12 Lead Ekg Tracing- EKG 06/10/25 Logged Technical 19:10 Cbc With Differential LAB 06/10/25 Complete 19:10 Basic Metabolic Panel LAB 06/10/25 Complete 19:10 Troponin I High LAB 06/10/25 Complete Sensitivity 19:10 Urinalysis Profile LAB 06/10/25 Complete 19:10 Hepatic Function Panel LAB 06/10/25 Complete 19:22 Lipase LAB 06/10/25 Complete 19:22 Ketorolac PHA 06/10/25 Complete Tromethamine 15mg/Ml 19:30 Ondansetron 4mg Inj PHA 06/10/25 Complete (Zofran 4mg Inj) 19:30 Famotidine 20mg Vial PHA 06/10/25 Complete (Pepcid 20mg Vial) 19:30 B-Type Natriuretic LAB 06/10/25 Complete Peptide 19:25 Chest 1vw RAD 06/10/25 Taken 19:25 Covid Rna Naat LAB 06/10/25 Complete 19:40 Influenza Type A & B, LAB 06/10/25 Complete Rapid 19:40 Rapid (Group A Strep) LAB 06/10/25 Complete 19:40 Acetaminophen 500mg PHA 06/10/25 Complete Tab (Tylenol 500mg T 20:00 Acetaminophen 500mg PHA 06/10/25 Complete Tab (Tylenol 500mg T 19:44 0.9%Nacl 1000ml (Ns PHA 06/10/25 Complete 1000ml) 20:30 Blood Cult JAYDE 06/10/25 In Process 20:24 Lactic Acid LAB 06/10/25 Complete 20:24 Culture Urine JAYDE 06/10/25 In Process 20:36 Current Medications Medications (Trade) Dose Ordered Sig/Josué Route PRN Reason Start Time Stop Time Status Last Admin Dose Admin Acetaminophen (TYLenol 500MG TAB) 500 mg STK-MED ONCE .ROUTE 06/10/25 19:44 06/10/25 19:44 DC Acetaminophen (TYLenol 500MG TAB) 1,000 mg ONCE PO 06/10/25 20:00 06/10/25 23:59 DC 06/10/25 19:51 Famotidine (Pepcid 20mg Vial) 20 mg ONCE IV 06/10/25 19:30 06/10/25 23:30 DC 06/10/25 19:49 Ketorolac Tromethamine (toRADol) 15 mg ONCE IV 06/10/25 19:30 06/10/25 23:30 DC 06/10/25 19:50 Ondansetron HCl (zoFRAN 4MG INJ) 4 mg ONCE IVP 06/10/25 19:30 06/10/25 23:30 DC 06/10/25 19:50 Sodium Chloride 1,000 ml @ 0 mls/hr ONCE ONCE IV 06/10/25 20:30 06/10/25 20:31 DC 06/10/25 20:55 Vital Signs Date Time Temp Pulse Resp B/P (MAP) Pulse Ox O2 Delivery O2 Flow Rate FiO2 06/10/25 22:38 99.1 64 18 133/70 98 Room Air* 0 21 06/10/25 20:51 100.8 77 18 149/45 99 Room Air* 0 06/10/25 19:51 101.7 06/10/25 19:41 101.7 82 24 168/77 97 Room Air* 0 06/10/25 18:52 100.6 89 16 191/89 96 Room Air 0 DX & DISP Disposition: Inpatient Departure Impression: Primary Impression: Dyspnea on exertion Additional Impression: COVID-19 Condition: Stable Referrals: RUDDY PATTON MD (PCP) I have reviewed the case, and I agree with, Diagnosis and Plan I performed the substantive portion of the visit. I have reviewed and personally made and approve the management plan that is documented in the note by myself or the KIM. I acknowledge for responsibility for the patient's management plan. KARI JUAREZ Jun 11, 2025 00:28
--- NOTE | 2025-06-11 01:31 | HP ---
[facility] Date of Service: Jun 11, 2025 Time of Service: 01:31 PCP, Michael Patterson HISTORY OF PRESENT ILLNESS: This is a 64-year-old female with past medical history of Osteoarthritis Breast cancer, diabetes, hypothyroidism, hypercholesterolemia, hypertension, GERD, hemorrhoids, lupus morbid obesity, Chronic obstructive pulmonary disease who presents to the ED for complaints of generalized body weakness , fatigue and cough started one week ago. Patient reports symptoms have progressively got wo rse and she started having fever ,nausea and shortness of breath x 2 days and now patient having palpitation as well so decided to drive self to ER for evaluation .Patient denies recent travel,no sick contacts and patient reports she is fully vaccinated with Covid. Vital signs in the ER temperature 101.7 heart rate 82, respiration 24, blood pressure 168/77, saturation 97% on room air. Seen and examined patient in the ER awake,alert and coherent,appears comfortable.Patient denies headache, dizziness, chest pain, vomiting, abdominal pain, sore throat and diarrhea. Latest vital signs temperature 97.9, heart rate 57, blood pressure 134/76, saturation 99% on room air. Labs: WBC 4.4 the rest of CBC result is unremarkable. Sodium 146, potassium 3.6, lactic acid 1.9 alkaline phosphatase 149 BNP 25 troponin 10. Urinalysis positive with esterase, urine RBC 0-1, urine WBC 6-10. Serology test for influenza type a and B negative SARs COVID positive group a strep negative. Chest x-ray result is still pending at this time. While in the ER patient received Toradol 15 mg IV, Zofran 4 mg IV, famotidine 20 mg IV, Tylenol 1000 mg p.o. and 1 L NS bolus. We will admit patient for further medical management. REVIEW OF SYSTEMS CONSTITUTIONAL: Positive fever Denies chills, or night sweats. No unintentional weight loss reported. NEUROLOGICAL: Generalized body weakness and fatigue Denies headache, amaurosis fugax, sensory deficit, vertigo/spinning sensation, gait abnormalities, or tremors. ENT: No hearing loss, otalgia, otorrhea, rhinitis, rhinorrhea, hoarseness, or sore throat. CARDIOVASCULAR: Denies any exertional angina, dyspnea on exertion, orthopnea, paroxysmal nocturnal dyspnea, palpitations, life-threatening arrhythmias, claudication. PULMONARY: Positive shortness of breaths and dry cough Denies phlegm/sputum, hemoptysis, pleuritic chest pain. SLEEP: Denies morning headaches, daytime somnolence or napping. Denies difficulty falling asleep, staying asleep, waking from sleep. Denies knowledge of snoring. GASTROINTESTINAL: Positive nausea Denies any type of dysphagia to either liquids or solids. Denies vomiting, pyrosis, early satiety, abdominal pain, diarrhea, constipation, or changes in stool consistency or caliber. Denies coffee-ground emesis, hematemesis, hematochezia, or melanotic stools. GENITOURINARY: Denies frequency, urgency, nocturia, hematuria or incontinence (Storage/Irritative symptoms.) Low urinary stream, straining to void, urinary intermittency or hesitancy, splitting of the voiding stream, terminal dribbling. ENDOCRINOLOGIC: Denies polyuria, polydipsia, polyphagia or heat/cold intolerances. HEMATOLOGIC: Denies thrombophilia/previous clots, or coagulopathy/bleeding disorders. ONCOLOGIC: Denies personal history of malignancy. DERMATOLOGIC: Denies rashes or pruritus. PSYCHIATRIC: Denies any suicidal or homicidal ideation. Denies hallucinations. PAST MEDICAL HISTORY: [Osteoarthritis Breast cancer, diabetes, hypothyroidism, hypercholesterolemia, hypertension, GERD, hemorrhoids, lupus morbid obesity, Chronic obstructive pulmonary disease ] PAST SURGICAL HISTORY: [ Right total knee arthroplasty, right knee arthroscopy, tonsillectomy, C- section, right breast cyst removal, hysterectomy and gastric sleeve surgery ] PAST SOCIAL HISTORY: [ Patient lives alone. Patient denies alcohol tobacco and recreational drug ] FAMILY HISTORY: [Stroke, hypertension, cardiovascular disease, asthma ] Coded Allergies: Sulfa (Sulfonamide Antibiotics) (Verified Allergy, Unknown, 05/28/16) PHYSICAL EXAM GENERAL APPEARANCE: The patient is awake, alert, and oriented, in no acute cardiopulmonary distress. NEUROLOGICAL: Cranial nerves II-XII grossly intact. Motor is 5/5 in bilateral upper and lower extremities proximal to distal. No sensory deficits. HEENT: Face is symmetric. Pupils are equal and reactive. Extraocular movements are intact. NECK: Supple. No JVD. No thyromegaly. No submental, submandibular, pre- /postauricular, occipital or supraclavicular lymphadenopathy. CHEST: Normal chest expansion. No Telemetry. LUNGS: Diminished breath sounds per auscultation CARDIOVASCULAR: Regular. S1 and S2 normal. No appreciable rubs, murmurs or ga llops. ABDOMEN: Soft, nontender, and nondistended. There is no rebound, voluntary guarding, or rigidity. : Deferred. No [place]. EXTREMITIES: Non-edematous and not cyanotic. No clubbing. Good capillary refill. SKIN: No skin breakdown. Vital Sign (Last 24 Hours) 06/10/25 22:38 Temp 99.1 Pulse 64 Resp 18 B/P (MAP) 133/70 Pulse Ox 98 O2 Delivery Room Air* O2 Flow Rate 0 FiO2 21 LABS: Laboratory: Test 06/10/25 20:40 06/10/25 19:51 06/10/25 19:23 06/10/25 19:20 Range/Units Lactic Acid Level 1.9 0.8-2.5 mmol/L Influenza Type A Antigen Negative For Type A NEGATIVE Influenza Type B Antigen Negative For Type B NEGATIVE SARS-CoV-2, RNA, NAAT POSITIVE SARS CoV-2 *A NEGATIVE Group A Streptococcus Rapid negative NEGATIVE White Blood Count 4.4 L 4.8-10.8 K/uL Red Blood Count 5.03 4.00-5.50 MIL/uL Hemoglobin 14.1 12.0-16.0 g/dL Hematocrit 42.7 36-48 % Mean Corpuscular Volume 84.9 79-99 fL Mean Corpuscular Hemoglobin 28.0 27.0-33.0 pg Mean Corpuscular Hemoglobin Concent 33.0 32.0-36.0 g/dL Red Cell Distribution Width 14.6 11.0-15.5 % Platelet Count 189 130-400 K/uL Mean Platelet Volume 11.0 H 7.5-10.5 fL Immature Granulocyte % (Auto) 0.5 0-1 % Neutrophils (%) (Auto) 64.8 40.0-77.0 % Lymphocytes (%) (Auto) 27.6 21.0-51.0 % Monocytes (%) (Auto) 6.0 3.0-13.0 % Eosinophils (%) (Auto) 0.9 0.0-8.0 % Basophils (%) (Auto) 0.2 0.0-5.0 % Neutrophils # (Auto) 2.8 1.8-7.7 K/uL Lymphocytes # (Auto) 1.2 1.0-4.8 K/uL Monocytes # (Auto) 0.3 0.1-1.0 K/uL Eosinophils # (Auto) 0.04 0.00-0.70 K/uL Basophils # (Auto) 0.01 0.00-0.20 K/uL Absolute Immature Granulocyte (auto 0.02 0-1 K/uL Nucleated Red Blood Cells 0.0 0.0-0.19 % Sodium Level 146 H 136-145 mmol/L Potassium Level 3.6 3.5-5.1 mmol/L Chloride Level 109 101-111 mmol/L Carbon Dioxide Level 25 21-32 mmol/L Blood Urea Nitrogen 10 7-18 mg/dL Creatinine 0.7 0.5-1.0 mg/dL Glomerular Filtration Rate Calc 95 >90 mL/min Random Glucose 111 H 70-105 mg/dL Total Calcium 8.9 8.5-10.1 mg/dL Total Bilirubin 0.5 0.2-1.0 mg/dL Direct Bilirubin 0.1 0.0-0.3 mg/dL Aspartate Amino Transf (AST/SGOT) 33 10-37 U/L Alanine Aminotransferase (ALT/SGPT) 32 12-78 U/L Alkaline Phosphatase 149 H 50-136 U/L Troponin I High Sensitivity 10 4-50 ng/L B-Type Natriuretic Peptide 25 0-100 pg/mL Total Protein 6.9 6.0-8.3 g/dL Albumin 3.6 3.5-5.0 g/dL Lipase 45 16-77 U/L Urine Color LIGHT-YELLOW YELLOW Urine Appearance CLEAR CLEAR Urine pH 6.5 5.0-8.0 Urine Specific [place] 1.009 1.001-1.031 Urine Protein NEGATIVE NEGATIVE mg/dL Urine Glucose (UA) NEGATIVE NEGATIVE mg/dL Urine Ketones NEGATIVE NEGATIVE mg/dL Urine Occult Blood NEGATIVE NEGATIVE Urine Nitrate NEGATIVE NEGATIVE Urine Bilirubin NEGATIVE NEGATIVE mg/dL Urine Urobilinogen 0.2 0.2-1.0 mg/dL Urine Leukocyte Esterase 25 H NEGATIVE Tucker/uL Urine RBC 0-1 0-1 /HPF Urine WBC 6-10 H 0-1 /HPF Urine Squamous Epithelial Cells RARE 0-2 /HPF Urine Bacteria RARE None Seen /HPF Current Medications Medications (Trade) Dose Ordered Sig/Josué Route PRN Reason Start Time Stop Time Status Last Admin Dose Admin Acetaminophen (TYLenol 500MG TAB) 1,000 mg ONCE PO 06/10/25 20:00 06/10/25 23:59 DC 06/10/25 19:51 1,000 MG Famotidine (Pepcid 20mg Vial) 20 mg ONCE IV 06/10/25 19:30 06/10/25 23:30 DC 06/10/25 19:49 20 MG Ketorolac Tromethamine (toRADol) 15 mg ONCE IV 06/10/25 19:30 06/10/25 23:30 DC 06/10/25 19:50 15 MG Ondansetron HCl (zoFRAN 4MG INJ) 4 mg ONCE IVP 06/10/25 19:30 06/10/25 23:30 DC 06/10/25 19:50 4 MG DIAGNOSTICS / RADIOLOGY: [ ] ASSESSMENT: COVID-19 positive POA Acute dyspnea on exertion POA Suspected UTI POA Morbid obesity POA Hypertension POA Diabetes POA Hypernatremia POA Hypothyroidism POA PLAN: We will admit patient in medical telemetry We will start on heart healthy and consistent carb diet We will start on Rocephin 1 g IV daily for empiric coverage We will start on famotidine 20 mg p.o. b.i.d. for GI prophylaxis We will replace electrolytes as needed per protocol We will start on insulin sliding scale AC & HS with hypoglycemia protocol We will add prn medication for fever,pain,cough , nausea and vomiting We will reconcile home meds once medlist available We will follow up urine culture and chest x-ray result We will request labs in am Further orders to follow depending on above results Case discussed with attending physician and came up with above treatment and plan of care. ADVANCED CARE PLANNING 1. Which of the following were discussed? Hospice Care - No Therapeutic options - Yes Advance Directives - No Other discussions - 2. Discussed with who? Patient 3. Voluntary nature of this service was explained to the patient? Yes 4. Amount of time spent - _20 5. Reviewed by Physician? (if this service was performed by NPP) Yes Patient seen and examined by me. Agree with note by MANAGER HIGHWAY SEE ADDITIONAL ORDERS PER CHART DISCUSSED WITH NURSING STAFF KIRILL CASEP Jun 11, 2025 01:31
--- NOTE | 2025-06-11 02:17 | NUR ---
[employer] H[employer] T[employer]ER AT BEDSIDE AT THIS TIME
[2025-06-11] MEDS ORDERED: DEXTROSE 50%-WATER 50 ML DISP.SYRIN IV PRN (03:00)
[2025-06-11] MEDS ORDERED: PoTASSium chloRIDE 20MEQ ER 20 MEQ ERTAB PO PRN (03:00)
[2025-06-11] MEDS ORDERED: GLUCAGON 1MG KIT 1 MG ML IM PRN (03:00)
[2025-06-11] MEDS ORDERED: MAGNESIUM 2GM PREMIX 50ML 50 ML IV PRN (03:00)
[2025-06-11] MEDS ORDERED: PoTASSium chl 10% ELIXIR 20MEQ 20 MEQ/15 ML UDCUP PO PRN (03:00)
--- NOTE | 2025-06-11 03:11 | NUR ---
report given to nurse giordano
[2025-06-11 07:41] LABS: IMMATURE GRANULOCYTE ABSOLUTE 0.01 K/uL (0-1); NUCLEATED RED BLOOD CELLS 0.0 % (0.0-0.19); PLATELET COUNT (AUTO) 140 K/uL (130-400); RED BLOOD CELL COUNT(AUTO) 4.38 MIL/uL (4.00-5.50); RED CELL DISTRIBUTION WIDTH 14.5 % (11.0-15.5); WHITE BLOOD COUNT (AUTO) 2.6 K/uL (4.8-10.8)
--- NOTE | 2025-06-11 07:54 | PN ---
[facility] PROGRESS NOTE Date of Service: Jun 11, 2025 Time of Service: 07:51 SUBJECTIVE: [ ] This is a 64-year-old female with past medical history of Osteoarthritis Breast cancer, diabetes, hypothyroidism, hypercholesterolemia, hypertension, GERD, hemorrhoids, lupus morbid obesity, Chronic obstructive pulmonary disease who presents to the ED for complaints of generalized body weakness , fatigue and cough started one week ago. Patient reports symptoms have progressively got worse and she started having fever ,nausea and shortness of breath x 2 days and now patient having palpitation as well so decided to drive self to ER for evaluation .Patient denies recent travel,no sick contacts and patient reports she is fully vaccinated with Covid. Vital signs in the ER temperature 101.7 heart rate 82, respiration 24, blood pressure 168/77, saturation 97% on room air. 06/11/25 patient was lying in bed encouraged to get out of bed to chair with meals. Patient appears weak patient was able to complete full sentences without taking a deep breath noted no shortness a breath. She is currently on room air. She denied chest pain advised patient to walk in room. PT to jhonny. REVIEW OF SYSTEMS CONSTITUTIONAL: Positive fever Denies chills, or night sweats. No unintentional weight loss reported. NEUROLOGICAL: Generalized body weakness and fatigue Denies headache, amaurosis fugax, sensory deficit, vertigo/spinning sensation, gait abnormalities, or tremors. ENT: No hearing loss, otalgia, otorrhea, rhinitis, rhinorrhea, hoarseness, or sore throat. CARDIOVASCULAR: Denies any exertional angina, dyspnea on exertion, orthopnea, paroxysmal nocturnal dyspnea, palpitations, life-threatening arrhythmias, claudication. PULMONARY: Positive shortness of breaths and dry cough Denies phlegm/sputum, hemoptysis, pleuritic chest pain. SLEEP: Denies morning headaches, daytime somnolence or napping. Denies difficulty falling asleep, staying asleep, waking from sleep. Denies knowledge of snoring. GASTROINTESTINAL: Positive nausea Denies any type of dysphagia to either liquids or solids. Denies vomiting, pyrosis, early satiety, abdominal pain, diarrhea, constipation, or changes in stool consistency or caliber. Denies coffee-ground emesis, hematemesis, hematochezia, or melanotic stools. GENITOURINARY: Denies frequency, urgency, nocturia, hematuria or incontinence (Storage/Irritative symptoms.) Low urinary stream, straining to void, urinary intermittency or hesitancy, splitting of the voiding stream, terminal dribbling. ENDOCRINOLOGIC: Denies polyuria, polydipsia, polyphagia or heat/cold intolerances. HEMATOLOGIC: Denies thrombophilia/previous clots, or coagulopathy/bleeding disorders. ONCOLOGIC: Denies personal history of malignancy. DERMATOLOGIC: Denies rashes or pruritus. PSYCHIATRIC: Denies any suicidal or homicidal ideation. Denies hallucinations. PHYSICAL EXAM GENERAL APPEARANCE: The patient is awake, alert, and oriented, in no acute cardiopulmonary distress. NEUROLOGICAL: Cranial nerves II-XII grossly intact. Motor is 5/5 in bilateral upper and lower extremities proximal to distal. No sensory deficits. HEENT: Face is symmetric. Pupils are equal and reactive. Extraocular movements are intact. NECK: Supple. No JVD. No thyromegaly. No submental, submandibular, pre- /postauricular, occipital or supraclavicular lymphadenopathy. CHEST: Normal chest expansion. No Telemetry. LUNGS: Diminished breath sounds per auscultation CARDIOVASCULAR: Regular. S1 and S2 normal. No appreciable rubs, murmurs or gallops. ABDOMEN: Soft, nontender, and nondistended. There is no rebound, voluntary guarding, or rigidity. : Deferred. No Forbes. EXTREMITIES: Non-edematous and not cyanotic. No clubbing. Good capillary refill. SKIN: No skin breakdown. Vital Signs (last 8hr) Date Time Temp Pulse Resp B/P (MAP) Pulse Ox O2 Delivery O2 Flow Rate FiO2 06/11/25 04:00 98 Room Air* 0 21 06/11/25 03:53 97.5 63 20 127/74 98 Room Air 06/11/25 03:03 18 N/A Room Air 21 06/11/25 02:17 97.9 57 18 134/76 99 Room Air* 0 21 LABS: Laboratory: Test 06/11/25 07:36 06/11/25 06:12 06/10/25 20:40 06/10/25 19:51 Range/Units White Blood Count 2.6 #L 4.8-10.8 K/uL Red Blood Count 4.38 4.00-5.50 MIL/uL Hemoglobin 12.2 12.0-16.0 g/dL Hematocrit 36.7 36-48 % Mean Corpuscular Volume 83.8 79-99 fL Mean Corpuscular Hemoglobin 27.9 27.0-33.0 pg Mean Corpuscular Hemoglobin Concent 33.2 32.0-36.0 g/dL Red Cell Distribution Width 14.5 11.0-15.5 % Platelet Count 140 # 130-400 K/uL Mean Platelet Volume 10.6 H 7.5-10.5 fL Immature Granulocyte % (Auto) 0.4 0-1 % Neutrophils (%) (Auto) 58.4 40.0-77.0 % Lymphocytes (%) (Auto) 30.4 21.0-51.0 % Monocytes (%) (Auto) 8.5 3.0-13.0 % Eosinophils (%) (Auto) 1.9 0.0-8.0 % Basophils (%) (Auto) 0.4 0.0-5.0 % Neutrophils # (Auto) 1.5 L 1.8-7.7 K/uL Lymphocytes # (Auto) 0.8 L 1.0-4.8 K/uL Monocytes # (Auto) 0.2 0.1-1.0 K/uL Eosinophils # (Auto) 0.05 0.00-0.70 K/uL Basophils # (Auto) 0.01 0.00-0.20 K/uL Absolute Immature Granulocyte (auto 0.01 0-1 K/uL Nucleated Red Blood Cells 0.0 0.0-0.19 % Whole Blood Glucose 100 70-110 MG/DL Lactic Acid Level 1.9 0.8-2.5 mmol/L Influenza Type A Antigen Negative For Type A NEGATIVE Influenza Type B Antigen Negative For Type B NEGATIVE SARS-CoV-2, RNA, NAAT POSITIVE SARS CoV-2 *A NEGATIVE Group A Streptococcus Rapid negative NEGATIVE Test 06/10/25 19:23 06/10/25 19:20 Range/Units Sodium Level 146 H 136-145 mmol/L Potassium Level 3.6 3.5-5.1 mmol/L Chloride Level 109 101-111 mmol/L Carbon Dioxide Level 25 21-32 mmol/L Blood Urea Nitrogen 10 7-18 mg/dL Creatinine 0.7 0.5-1.0 mg/dL Glomerular Filtration Rate Calc 95 >90 mL/min Random Glucose 111 H 70-105 mg/dL Total Calcium 8.9 8.5-10.1 mg/dL Total Bilirubin 0.5 0.2-1.0 mg/dL Direct Bilirubin 0.1 0.0-0.3 mg/dL Aspartate Amino Transf (AST/SGOT) 33 10-37 U/L Alanine Aminotransferase (ALT/SGPT) 32 12-78 U/L Alkaline Phosphatase 149 H 50-136 U/L Troponin I High Sensitivity 10 4-50 ng/L B-Type Natriuretic Peptide 25 0-100 pg/mL Total Protein 6.9 6.0-8.3 g/dL Albumin 3.6 3.5-5.0 g/dL Lipase 45 16-77 U/L Urine Color LIGHT-YELLOW YELLOW Urine Appearance CLEAR CLEAR Urine pH 6.5 5.0-8.0 Urine Specific [place] 1.009 1.001-1.031 Urine Protein NEGATIVE NEGATIVE mg/dL Urine Glucose (UA) NEGATIVE NEGATIVE mg/dL Urine Ketones NEGATIVE NEGATIVE mg/dL Urine Occult Blood NEGATIVE NEGATIVE Urine Nitrate NEGATIVE NEGATIVE Urine Bilirubin NEGATIVE NEGATIVE mg/dL Urine Urobilinogen 0.2 0.2-1.0 mg/dL Urine Leukocyte Esterase 25 H NEGATIVE Tucker/uL Urine RBC 0-1 0-1 /HPF Urine WBC 6-10 H 0-1 /HPF Urine Squamous Epithelial Cells RARE 0-2 /HPF Urine Bacteria RARE None Seen /HPF Current Medications Medications (Trade) Dose Ordered Sig/Josué Route PRN Reason Start Time Stop Time Status Last Admin Dose Admin Acetaminophen (TYLenol 325MG TAB) 650 mg Q4H PRN PO MILD PAIN (1-3) 06/11/25 03:00 07/11/25 02:59 Acetaminophen (TYLenol 325MG TAB) 650 mg Q6H PRN PO TEMPERATURE GREATER THAN 101.5 06/11/25 03:00 07/11/25 02:59 Acetaminophen (TYLenol 500MG TAB) 1,000 mg ONCE PO 06/10/25 20:00 06/10/25 23:59 DC 06/10/25 19:51 1,000 MG Albuterol (DUOneb) 1 udvial [id number] PRN IH sob 06/11/25 03:00 07/11/25 02:59 Ceftriaxone Sodium 1 gm/ Sodium Chloride 50 ml @ 100 mls/hr Q24H IV 06/11/25 03:00 06/11/25 02:54 DC Ceftriaxone Sodium (ROCEphine 1G INJ) 1 gm Q24H IVPB 06/11/25 03:00 06/21/25 02:59 06/11/25 03:26 1 GM Dextrose (D50w) 50 ml AD PRN IV HYPOGLYCEMIA PROTOCOL 06/11/25 03:00 07/11/25 02:59 Famotidine (Pepcid 20mg Vial) 20 mg ONCE IV 06/10/25 19:30 06/10/25 23:30 DC 06/10/25 19:49 20 MG Famotidine (Pepcid 20mg Tab) 20 mg BID PO 06/11/25 09:00 07/11/25 08:59 Glucagon (Glucagon 1mg Kit) 1 mg AD PRN IM HYPOGLYCEMIA PROTOCOL 06/11/25 03:00 07/11/25 02:59 Insulin Human Regular (humuLIN R 100 UNIT/ML 3ML) INSULIN SLIDING SCAL... ACHS SQ 06/11/25 07:30 07/11/25 07:29 Ketorolac Tromethamine (toRADol) 15 mg ONCE IV 06/10/25 19:30 06/10/25 23:30 DC 06/10/25 19:50 15 MG Magnesium Sulfate 50 ml @ 0 mls/hr PROTOCOL PRN IV OTHER [SEE ORDER COMMENTS] 06/11/25 03:00 07/11/25 02:59 Ondansetron HCl (zoFRAN 4MG INJ) 4 mg ONCE IVP 06/10/25 19:30 06/10/25 23:30 DC 06/10/25 19:50 4 MG Ondansetron HCl (zoFRAN 4MG INJ) 4 mg Q6H PRN IV NAUSEA/VOMITING 06/11/25 03:00 07/11/25 02:59 Potassium Chloride 100 ml @ 100 mls/hr AD PRN IV POTASSIUM PROTOCOL 06/11/25 03:00 07/11/25 02:59 Potassium Chloride (K-Dur/Klor-Con 20meq) 20 meq AD PRN PO POTASSIUM PROTOCOL 06/11/25 03:00 07/11/25 02:59 Potassium Chloride (KCl 10% Elixir 20meq/15ml) 20 meq AD PRN PO POTASSIUM PROTOCOL 06/11/25 03:00 07/11/25 02:59 DIAGNOSTICS / RADIOLOGY: [ ] ASSESSMENT: COVID-19 positive POA Acute dyspnea on exertion POA Suspected UTI POA Morbid obesity POA Hypertension POA Diabetes POA Hypernatremia POA Hypothyroidism POA PLAN: Admit: medical telemetry Diet: heart healthy and consistent carb diet ABT" Rocephin 1 g IV daily for empiric coverage Encouraged to drink free water Microbiology urine cultures waiting for final report famotidine 20 mg p.o. b.i.d. for GI prophylaxis replace electrolytes as needed per protocol continue insulin sliding scale AC & HS with hypoglycemia protocol home medications reconciled Labs in a.m. Further orders to follow depending on above results Case discussed with attending physician and came up with above treatment and plan of care. ATTESTATION BY PHYSICIAN I have seen and examined the patient. I reviewed the documentation, medical decision making, and treatment plan as noted by the mid-level provider above. I agree with the findings and plan of care. ROHITH SHELTON MD, ELIZABETH NP Jun 11, 2025 07:54
[2025-06-11 07:57] LABS: ASPARTATE AMINOTRANSFERASE 24.0 U/L (10-37); CREATININE 0.7 mg/dL (0.5-1.0); GLOMERULAR FILTR. RATE CALC 95.0 mL/min (>90); GLUCOSE,RANDOM 99.0 mg/dL (70-105); SODIUM SERUM 147.0 mmol/L (136-145); TOTAL PROTEIN, SERUM 5.6 g/dL (6.0-8.3); UREA NITROGEN, BLOOD 9.0 mg/dL (7-18)
[2025-06-11] MEDS: Cholecalciferol (Vitamin D3) 1 CAP PO SCH (09:00)
[2025-06-11] MEDS: MELOXICAM 7.5 MG TABLET PO SCH (09:47)
[2025-06-11] MEDS: VITAMIN B COMPLEX 1 CAPSULE PO SCH (09:47)
[2025-06-11] MEDS: FAMOTIDINE 20MG TAB PO SCH (09:47)
[2025-06-11 10:11] LABS: BAND NEUTROPHILS % (MANUAL) 3 % (0-2); EOSINOPHILS % (MANUAL) 1 % (1-6); LYMPHOCYTES % (MANUAL) 51 % (22-44); MAN.DIFF COMMENT-IMPRESSION MANUAL DIFFERENTIAL; MONOCYTES % (MANUAL) 8 % (2-9); PLATELET MORPHOLOGY COMMENT ADEQUATE; SEGMENTED NEUTROPHILS % 37 % (40-70)
--- NOTE | 2025-06-11 16:40 | NUR ---
INITIAL/DCP HOME Met w pt this afternoon to discuss dcp. Pt states that she lives alone. She is independent w ambulation and ADls. She receives 30hrs of provider services thru [facility]. She owns a cane and rollator if needed. She is able to drive herself where needed. Her preferred pharmacy [facility]. Pt states that her bathroom floor needs work. Discussed a poss referral to [facility]. Pt in agreement will refer to [facility]. Discharge goal is to return home. Addendum: 06/12/25 at 1642 by QUINN SMITH Amended: Links added.
--- NOTE | 2025-06-11 17:22 | EKG ---
[facility] Test Date: 2025-06-10 Test Time: 19:01:07 Pat Name: SEMAJ MURGUIA Department: [facility] Room: 401 1 Gender: F Supervisor [address]: [id number] : 1960 Requested By: BAYRON MANCERA Order Number: [id number] Reading MD: Ivonne Boland Measurements Intervals [place] Rate: 83 P: 2 [place]: 149 QRS: -6 QRSD: 78 T: 45 QT: 350 QTc: 411 Interpretive Statements Sinus rhythm Low voltage, precordial leads Compared to ECG 01/07/2017 12:16:41 Low QRS voltage now present Sinus bradycardia no longer present Electronically Signed On 06-13-2025 15:26:48 CDT by Ivonne Boland Please click the below link to view image of tracing.
[2025-06-12] VITALS (8 sets, daily range): BP systolic 94–135; BP diastolic 56–68; PULSE 64–80; RESP 16–20; TEMP 98–99.8; O2SAT 97–98
[2025-06-12] MEDS ORDERED: CEFD300C3 PO (10:21)
--- NOTE | 2025-06-12 10:26 | DS ---
Discharge Summary Hospital Course Summary: This is a 64-year-old female with past medical history of Osteoarthritis Breast cancer, diabetes, hypothyroidism, hypercholesterolemia, hypertension, GERD, hemorrhoids, lupus morbid obesity, Chronic obstructive pulmonary disease who presents to the ED for complaints of generalized body weakness , fatigue and cough started one week ago. Patient reports symptoms have progressively got worse and she started having fever ,nausea and shortness of breath x 2 days and now patient having palpitation as well so decided to drive self to ER for evaluation .Patient denies recent travel,no sick contacts and patient reports she is fully vaccinated with Covid. Vital signs in the ER temperature 101.7 heart rate 82, respiration 24, blood pressure 168/77, saturation 97% on room air. 06/11/25 patient was lying in bed encouraged to get out of bed to chair with meals. Patient appears weak patient was able to complete full sentences without taking a deep breath noted no shortness a breath. She is currently on room air. She denied chest pain advised patient to walk in room. PT to eval. 06/12/25 patient is hemodynamically stable for discharge. Urine cultures positive for Klebsiella pneumoniae we will be discharged on oral antibiotics cefdinir 300 mg p.o. b.i.d. for seven days. Patient will remain quarantine avoid public places for the next three days. She is currently on room air ambulating in room without difficulties. She will follow-up with her PCP in 2-3 days. Discussed weight management modified diet and exercise. Procedure(s): RUN DATE: 06/11/25 [facility] PAGE 1 RUN TIME: [phone] [address], [place] [address] Department of [employer] [facility] # [id number] Classroom Instructor: Isadora Mckinley DO Specimen Report PATIENT: SEMAJ MURGUIA ACCT: [id number] LOC: [facility] U: [id number] AGE/SX: 64/F ROOM: 401 RE06/11/[address]: LAWANDA GRAHAM MD : 1960 BED: 1 DIS: STATUS: ADM IN TLOC: SPEC: [id number] AMALIA: 06/10/25 STATUS: RES REQ: [id number] RECD: 06/10/[address]: KARI JUAREZ SOURCE: BLOOD ENTR: 06/10/25-[address]: LAWANDA GRAHAM MD [facility]: RUDDY PATTON MD ORDERED: BLOOD CULTURE COMMENTS: What is the Source? BLOOD Procedure Result Juan Date-Time BLOOD CULT Preliminary 06/11/25 NO GROWTH AFTER 24 HOURS RUN DATE: 06/11/25 [facility] PAGE 1 RUN TIME: [phone] [address], [place] [address] Department of Laboratories CLIA # [id number] Classroom Instructor: Isadora Mckinley DO Specimen Report PATIENT: SEMAJ MURGUIA ACCT: [id number] LOC: [facility] U: [id number] AGE/SX: 64/F ROOM: [facility] RE06/11/[address]: LAWANDA GRAHAM MD : 1960 BED: 1 DIS: STATUS: ADM IN TLOC: SPEC: [id number] AMALIA: 06/10/25-2039 STATUS: RES REQ: [id number] RECD: 06/10/[address]: KARI JUAREZ SOURCE: BLOOD ENTR: 06/10/25-[address]: LAWANDA GRAHAM MD [facility]: RUDDY PATTON MD ORDERED: BLOOD CULTURE COMMENTS: What is the Source? BLOOD Procedure Result Juan Date-Time BLOOD CULT Preliminary 06/11/25-2043 NO GROWTH AFTER 24 HOURS Item Value Date Time White Blood Count 4.4 K/uL L 06/10/251922 White Blood Count 2.6 K/uL L # 06/11/2536 Red Blood Count 4.38 MIL/uL 06/11/25735 Hemoglobin 12.2 g/dL 06/11/25735 Hematocrit 36.7 % 06/11/25735 Mean Corpuscular Volume 83.8 fL 06/11/25735 Mean Corpuscular Hemoglobin 27.9 pg 06/11/25735 Mean Corpuscular Hemoglobin Concent 33.2 g/dL 06/11/25735 Red Cell Distribution Width 14.5 % 06/11/25735 Platelet Count 140 K/uL # 06/11/25735 Mean Platelet Volume 10.6 fL H 06/11/25735 Immature Granulocyte % (Auto) 0.4 % 06/11/25735 Neutrophils (%) (Auto) 58.4 % 06/11/25735 Lymphocytes (%) (Auto) 30.4 % 06/11/25735 Monocytes (%) (Auto) 8.5 % 06/11/25735 Eosinophils (%) (Auto) 1.9 % 06/11/25735 Basophils (%) (Auto) 0.4 % 06/11/25735 Neutrophils # (Auto) 1.5 K/uL L 06/11/25735 Lymphocytes # (Auto) 0.8 K/uL L 06/11/2536 Monocytes # (Auto) 0.2 K/uL 06/11/25735 Eosinophils # (Auto) 0.05 K/uL 06/11/25735 Basophils # (Auto) 0.01 K/uL 06/11/2536 Absolute Immature Granulocyte (auto 0.01 K/uL 06/11/25735 Segmented Neutrophils % 37 % L 06/11/25735 Band Neutrophils % 3 % H 06/11/25735 Lymphocytes % (Manual) 51 % H 06/11/25735 Monocytes % (Manual) 8 % 06/11/25735 Eosinophils % (Manual) 1 % 06/11/25735 Nucleated Red Blood Cells 0.0 % 06/11/25735 Differential Comment MANUAL DIFFERENTIAL 06/11/25735 Platelet Morphology Comment ADEQUATE 06/11/25735 Red Blood Cell Morphology ANISO 1+ 06/11/25735 Urine Leukocyte Esterase 25 Tucker/uL H 06/10/251919 Urine Urobilinogen 0.2 mg/dL 06/10/251919 Urine Bilirubin NEGATIVE mg/dL 06/10/251919 Urine Occult Blood NEGATIVE 06/10/251919 Urine Ketones NEGATIVE mg/dL 06/10/251919 Urine Glucose (UA) NEGATIVE mg/dL 06/10/251919 Urine Protein NEGATIVE mg/dL 06/10/251919 Urine Specific [place] 1.009 06/10/251919 Urine pH 6.5 06/10/251919 Urine Appearance CLEAR 06/10/251919 Urine Color LIGHT-YELLOW 06/10/251919 Urine Nitrate NEGATIVE 06/10/251919 Urine RBC 0-1 /HPF 06/10/251919 Urine Squamous Epithelial Cells RARE /HPF 06/10/251919 Urine Bacteria RARE /HPF 06/10/251919 Urine WBC 6-10 /HPF H 06/10/251919 Influenza Type A Antigen Negative For Type A 06/10/251950 Influenza Type B Antigen Negative For Type B 06/10/251950 SARS-CoV-2, RNA, NAAT POSITIVE SARS CoV-2 *A 06/10/251950 Group A Streptococcus Rapid negative 06/10/251950 Sodium Level 147 mmol/L H 06/11/25 0736 Potassium Level 3.5 mmol/L 06/11/25 0736 Chloride Level 112 mmol/L H 06/11/25 0736 Carbon Dioxide Level 27 mmol/L 06/11/25 0736 Blood Urea Nitrogen 9 mg/dL 06/11/25 0736 Creatinine 0.7 mg/dL 06/11/25 0736 Glomerular Filtration Rate Calc 95 mL/min 06/11/25 0736 Random Glucose 99 mg/dL 06/11/25 0736 Total Calcium 7.9 mg/dL L 06/11/25 0736 Magnesium Level 1.80 mg/dL 06/11/25 0736 Total Bilirubin 0.4 mg/dL 06/11/25 0736 Aspartate Amino Transf (AST/SGOT) 24 U/L 06/11/25 0736 Alanine Aminotransferase (ALT/SGPT) 26 U/L 06/11/25 0736 Alkaline Phosphatase 114 U/L 06/11/25 0736 Total Protein 5.6 g/dL L 06/11/25 0736 Albumin 2.8 g/dL L # 06/11/25 0736 Assessment/Plan: Discharged dx's; COVID-19 positive POA Acute dyspnea on exertion POA resolved on room air Suspected UTI POA Gram-negative KLEBSIELLA PNEUMONIAE Morbid obesity POA Hypertension POA Diabetes POA Hypernatremia POA Hypothyroidism POA PLAN: ADMISSION DATE: 06/11/2025 DISCHARGE DATE: 06/12/2025 DISPOSITION: Home CONDITION: Stable DIE TROUBLE SHOOTER(S): None FOLLOW UP APPOINTMENT(S): PCP 2-3 days PROCEDURES: None IMAGING (S) report attached to summary : Checks x-ray MICROBIOLOGY: report attached to summary; ACTIVITY: Ad sima HOME MEDICATIONS remain the same CHANGES ON HOME MEDICATIONS none NEW MEDICATIONS cefdinir 300 mg p.o. b.i.d. for seven days TEACHING: Advised to complete full cycle of antibiotics. Emergency instructions: The patient was instructed to present to the nearest Emergency Department or call 911 should their symptoms return or worsen. Discharge Instructions: RUN DATE: 06/12/25 [facility] PAGE 1 RUN TIME: [phone] [address], [place] [address] Department of Laboratories CLIA # [id number] Classroom Instructor: Isadora Mckinley DO Specimen Report PATIENT: SEMAJ MURGUIA ACCT: [id number] LOC: [facility] U: [id number] AGE/SX: 64/F ROOM: [facility] RE06/11/[address]: LAWANDA GRAHAM MD : 1960 BED: 1 DIS: STATUS: ADM IN TLOC: SPEC: [id number] AMALIA: 06/10/25 STATUS: COMP REQ: [id number] RECD: 06/11/[address]: BAYRON MANCERA MD SOURCE: [facility] [place] ENTR: 06/11/[address]: LAWANDA GRAHAM MD [facility]: RUDDY COHEN MD ORDERED: AERO ID & SENS Procedure Result Juan Date-Time AEROBIC ID & SENSITIVITIES Final 06/12/25-811 [facility] COLONY DESCRIPTION: DAY 1: COLONY COUNT: >100,000 CFU/ML GRAM NEGATIVE RODS IDENTIFICATION AND SENSITIVITY TO FOLLOW DAY 2: NO FURTHER WORK-UP DONE KLEBSIELLA PNEUMONIAE K PNEUMO M.I.C. RX --------- ---- AZTREONAM <=4 S CEFAZOLIN <=2 S CEFTAZIDIME/AVIBACTAM <=8 S GENTAMICIN <=2 S LEVOFLOXACIN <=0.5 S NITROFURANTOIN <=32 S MEROPENEM <=1 S PIPERACILLIN/TAZOBACTAM <=8 S TRIMETHOPRIM/SUFLAMETHOXAZOLE <=2/38 S @ [facility] Test Performed at: [facility] [address], [place], [place] [employer] Tr[employer] Driver: Jimbo Muir D.O. END OF REPORT Home Medications: Reported Medications Meloxicam (Meloxicam) 15 Mg Tablet, 1 TAB PO DAILY for 30 Days, #30 TAB 0 Refills 06/11/25 Mirtazapine (Mirtazapine Odt) 15 Mg Tab.rapdis, 15 MG PO DAILY, TAB 06/11/25 Cholecalciferol (Vitamin D3) (Vitamin D3) 125 Mcg (5000 Unit) Capsule, 1 CAP PO DAILY for 30 Days, #30 CAP 0 Refills 06/11/25 Temazepam (Temazepam) 30 Mg Capsule, 1 CAP PO HSPRN PRN for sleep for 30 Days, #30 CAP 0 Refills 06/11/25 Vitamin B Complex (Vitamin B Complex) 1 Each Capsule, 1 CAP PO DAILY for 30 Days, #60 CAP 0 Refills 06/11/25 Insulin Glargine,Hum.rec.anlog (Lantus Solostar) 100 Unit/Ml (3 Ml) Insuln.pen, 20 UNIT SQ HS for 30 Days, ML 0 Refills 06/11/25 Methylprednisolone (Methylprednisolone) 8 Mg Tablet, 1 TAB PO AD for 5 Days, #5 TAB 0 Refills 06/11/25 Dexlansoprazole (Dexilant) 60 Mg Cap., 1 CAP PO DAILY for 30 Days, #30 CAP 0 Refills 06/11/25 Montelukast Sodium (Montelukast Sodium) 10 Mg Tablet, 1 TAB PO DAILY for 30 Days, #30 TAB 0 Refills 06/11/25 Atorvastatin Calcium (Atorvastatin Calcium) 40 Mg Tablet, 1 TAB PO QMOWEFR for 30 Days, #30 TAB 0 Refills 06/11/25 Losartan Potassium (Losartan Potassium) 25 Mg Tablet, 1 TAB PO DAILY for 30 Days, #30 TAB 0 Refills 06/11/25 Levothyroxine Sodium (Levothyroxine Sodium) 150 Mcg Tablet, 150 MCG PO DAILY, TAB 05/14/19 Discontinued Reported Medications Fluticasone Propionate (Flonase Nasal [place]) 50 Mcg/[place], 50 MCG NASAL DAILY, SPRAY 05/14/19 Fluticasone/Vilanterol (Breo Ellipta 100-25 Mcg INH) 1 Each Aer.pow.ba, 1 EACH IH DAILY 05/14/19 Sertraline HCl (Sertraline HCl) 50 Mg Tablet, 50 MG PO HS, TAB 05/14/19 Atorvastatin Calcium (LIPITOR) 40 Mg Tablet, 40 MG PO DAILY, TAB 05/14/19 Temazepam (Temazepam) 30 Mg Capsule, 30 MG PO HS, CAP 05/14/19 [Vitamin D] No Conflict Check, 05231 05/14/19 Lansoprazole (Lansoprazole) 30 Mg Tab., 30 MG PO BID 05/14/19 Discontinued Scripts Hydrocodone/Acetaminophen ([place] 5-325 Tablet) 1 Each Tablet, 1-2 EACH PO Q6HPRN PRN for PAIN, #60 TAB Prov:MATEUS DEL RIO MD 05/19/19 Nitrofurantoin Monohyd/M-Cryst (Macrobid 100 mg Capsule) 100 Mg Capsule, 100 MG PO BID, #20 CAP Prov:MATEUS DEL RIO MD 05/19/19 Aspirin (ASPIRIN) 325 Mg Tablet, 325 MG PO BID, #40 TAB Prov:MATEUS DEL RIO MD 05/19/19 New Medications: Cefdinir (Cefdinir) 300 Mg Capsule 1 CAP PO BID for 7 Days, #14 CAP 0 Refills Continued Medications: Atorvastatin Calcium (Atorvastatin Calcium) 40 Mg Tablet 1 TAB PO QMOWEFR for 30 Days, #30 TAB 0 Refills Cholecalciferol (Vitamin D3) (Vitamin D3) 125 Mcg (5000 Unit) Capsule 1 CAP PO DAILY for 30 Days, #30 CAP 0 Refills Dexlansoprazole (Dexilant) 60 Mg Cap.mp 1 CAP PO DAILY for 30 Days, #30 CAP 0 Refills Insulin Glargine,Hum.rec.anlog (Lantus Solostar) 100 Unit/Ml (3 Ml) Insuln.pen 20 UNIT SQ HS for 30 Days, ML 0 Refills Levothyroxine Sodium (Levothyroxine Sodium) 150 Mcg Tablet 150 MCG PO DAILY, TAB Losartan Potassium (Losartan Potassium) 25 Mg Tablet 1 TAB PO DAILY for 30 Days, #30 TAB 0 Refills Meloxicam (Meloxicam) 15 Mg Tablet 1 TAB PO DAILY for 30 Days, #30 TAB 0 Refills Mirtazapine (Mirtazapine Odt) 15 Mg Tab.rapdis 15 MG PO DAILY, TAB Montelukast Sodium (Montelukast Sodium) 10 Mg Tablet 1 TAB PO DAILY for 30 Days, #30 TAB 0 Refills Temazepam (Temazepam) 30 Mg Capsule 1 CAP PO HSPRN PRN for sleep for 30 Days, #30 CAP 0 Refills Vitamin B Complex (Vitamin B Complex) 1 Each Capsule 1 CAP PO DAILY for 30 Days, #60 CAP 0 Refills Discontinued Medications: Methylprednisolone (Methylprednisolone) 8 Mg Tablet 1 TAB PO AD for 5 Days, #5 TAB 0 Refills Time spent arranging discharge: 31-60 minutes ATTESTATION BY PHYSICIAN I have seen and examined the patient. I reviewed the documentation, medical decision making, and treatment plan as noted by the mid-level provider above. I agree with the findings and plan of care. ROHITH SHELTON MD, ELIZABETH NP Jun 12, 2025 10:26
--- NOTE | 2025-06-12 11:28 | NUR ---
discharge instructions provided to patient . patient verbalized understanding
--- NOTE | 2025-06-12 13:18 | NUR ---
PER PATIENT DOES NOT HAVE A RIDE , STATES SHE THINKS SHE CAN DRIVE HERSELF HOME . PATIENT NAUSEATED . INFORMED PRIMARY TEAM GIVE THE ZOFRAN AND FOR PT TO GET SOMEONE TO PICK HER UP . PER PATIENT WILL TRY TO GET A FRIEND FROM [place] TO PICK HER UP , PRIMARY INFORMED
[2025-06-12] MEDS ORDERED: ONDA-104 PO (14:21)
--- NOTE | 2025-06-12 15:00 | NUR ---
per patient was unable to find a ride ,states she is able to drive , vital signs stable , informed charge nurse delmy cobb and primary team luca pina. patient was taken down to lobby by monet amaro
--- NOTE | 2025-06-13 16:39 | HMCIMG ---
EXAM: CR Chest, 1 View. CLINICAL HISTORY: sob on exertion COMPARISON: None provided. FINDINGS: LUNGS: No active infiltrate PLEURAL SPACES: No pleural effusion or pneumothorax. MEDIASTINUM: Cardiac silhouette is prominent BONES: No acute osseous abnormality. MISCELLANEOUS: Left venous line middle third SVC IMPRESSION: 1. Cardiac silhouette is prominent 2. No active infiltrate 3. Left venous line middle third SVC /[place]
== END 2025-06-12 16:00 | disposition home or self-care (01) ==
LOC: EDH 18:49 → EDHIP 06-11 02:43 → INTOOBSV 06-11 02:43 → 4AH 06-11 03:21
PROVIDERS: ADMIT Hospitalist; ATTEND Hospitalist
DX: U07.1 COVID-19 (principal); E66.01 Morbid (severe) obesity due to excess calories; M79.10 Myalgia, unspecified site; E11.9 Type 2 diabetes mellitus without complications; E87.0 Hyperosmolality and hypernatremia; E03.9 Hypothyroidism, unspecified; I10 Essential (primary) hypertension; M19.90 Unspecified osteoarthritis, unspecified site; K21.9 Gastro-esophageal reflux disease without esophagitis; J44.9 Chronic obstructive pulmonary disease, unspecified; E78.00 Pure hypercholesterolemia, unspecified; Z68.41 Body mass index [BMI] 40.0-44.9, adult; Z96.651 Presence of right artificial knee joint; Z90.710 Acquired absence of both cervix and uterus; Z88.2 Allergy status to sulfonamides; Z79.899 Other long term (current) drug therapy
CPT/HCPCS: 96375; 99285; 80076; 84484; 80048; 83880; 83690; 85025 ×2; 87040 ×2; 87086 ×2; 87880; 87804 ×2; 83605; 81001; 36415 ×2; 87635; 71045; 93005; 96376 ×2; 96365; 83735; 80053; 87186; 82948 ×6; 94664; 96366; J3490; J7030; J2405 ×3; J1885 ×2; J0696 ×2; G0378 ×3